=== PATIENT | female | born 1985 | race Caucasian/White ===

== ENCOUNTER 2021-11-04 13:47 | Outpatient (CLI) | payer OTHER | END 2021-11-04 13:48 | disposition home or self-care (01) | LOC: TBSIIMAG 13:47 | PROVIDERS: ATTEND Neurological Surgery | DX: M53.3 Sacrococcygeal disorders, not elsewhere classified (principal); M54.50 Low back pain, unspecified; M47.816 Spondylosis without myelopathy or radiculopathy, lumbar region | CPT/HCPCS: 72100; 72220 ==

== ENCOUNTER 2021-11-06 07:43 | Outpatient (CLI) | payer OTHER | END 2021-11-06 07:44 | disposition home or self-care (01) | LOC: TBSIIMAG 07:43 | PROVIDERS: ATTEND Neurological Surgery | DX: M47.26 Other spondylosis with radiculopathy, lumbar region (principal); M48.061 Spinal stenosis, lumbar region without neurogenic claudication | CPT/HCPCS: 72148 ==